=== PATIENT | male | born 1940 | race Caucasian/White ===

== ENCOUNTER 2019-03-09 13:52 | Inpatient (IN) | payer MEDICARE, OTHER ==
[~2019-03-09] VITALS: Ht 167.6 cm; Wt 64.9 kg
--- NOTE | 2019-03-09 14:05 | NUR ---
PT BIB [facility] WITH C/O CP. [facility] NOTED PT TO BE SATING 80% ON RA, PLACED ON 6L NC. PT DOES HAVE HX OF COPD, NO HOME O2 USE AT THIS TIME. 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 PT STATES PAIN 4/10, DESCRIBES IT ACHING
[2019-03-09] MEDS ORDERED: ASPIRIN 81 MG TABLET CHEW PO ONE (15:00)
--- NOTE | 2019-03-09 15:00 | NUR ---
PT RESTING ON EDWARD GEE NOTED, VSS. 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
[2019-03-09 15:18] LABS: ALANINE AMINOTRANSFERASE 115 U/L (12-78); ALBUMIN 2.9 g/dL (3.4-5.0); ANION GAP 11 mmol/L (5-15); CALCIUM 8.4 mg/dL (8.5-10.1); CHLORIDE 100 mmol/L (98-107); CREATININE 1.62 mg/dL (0.7-1.3)
[2019-03-09 15:20] LABS: MEAN CORPUSCULAR HEMOGLOBIN 32.2 pg (27.5-34.5); MEAN CORPUSCULAR VOLUME 97.5 fL (81-97); RED BLOOD COUNT 3.08 x10^6/uL (4.38-5.82); RED CELL DISTRIBUTION WIDTH 18.9 % (9.4-14.8)
[2019-03-09 15:22] LABS: ALKALINE PHOSPHATASE 85 U/L (45-117); BILIRUBIN,TOTAL 0.4 mg/dL (0.2-1.0); TOTAL PROTEIN 7.7 g/dL (6.4-8.2); TROPONIN I 0.019 ng/mL (0.000-0.045)
[2019-03-09 15:37] LABS: MEAN PLATELET VOLUME 6.9 fL (7.4-10.4); PLATELET COUNT 95 x10^3/uL (130-400)
[2019-03-09 15:38] LABS: MD YES
[2019-03-09 15:41] LABS: BAND#(MANUAL) 0.28 x10^3/uL; BANDS%(MANUAL) 14 % (0-7); LYMPH#(MANUAL) 0.54 x10^3/uL (1-3.4); LYMPHS% (MANUAL) 27 % (22-44); MONOS% (MANUAL) 5 % (2-9); SEG#(MANUAL) 1.08 x10^3/uL (1.8-6.8); SEGS% (MANUAL) 54 % (42-75)
[2019-03-09 15:42] LABS: <PLATELET ESTIMATE> DECREASED; <PLT MORPHOLOGY> NORMAL PLT MORPH; ANISOCYTOSIS 1+
--- NOTE | 2019-03-09 15:52 | NUR ---
ER PROVIDER IN TO UPDATE PT ON POC, PT VSS, NAD NOTED. PT MEDICATED PER MAR
[2019-03-09] MEDS ORDERED: SODIUM CHLORIDE 0.9% 1,000ML IVBOLUS ONE (16:00)
[2019-03-09] MEDS ORDERED: AZITHROMYCIN 500 MG in SODIUM CHLORIDE 0.9% 250 ML IVPB ONE (16:00)
[2019-03-09] MEDS ORDERED: CEFTRIAXONE PMX 1GM/50ML 50 ML IVPB ONE (16:00)
[2019-03-09] MEDS ORDERED: CEFTRIAXONE PMX 1GM/50ML 50 ML ONE (16:17)
[2019-03-09 16:43] LABS: MICROSCOPIC INDICATED
[2019-03-09] MEDS ORDERED: OMNIPAQUE 350 MG/ML, 100ML BOTTLE ONE ×2 (17:10→17:14)
--- NOTE | 2019-03-09 17:16 | NUR ---
PT TO IMAGING
[2019-03-09 17:17] LABS: CULTURE INDICATED? NO
[2019-03-09] MEDS: SODIUM CHLORIDE 0.9% 1,000 ML IV SCH (18:39)
--- NOTE | 2019-03-09 18:41 | NUR ---
PT RESTIN ON MARSHALL GEE NAD NOTED, PT TO BE ADMITTED, AWAITING FOR BED PLACEMENT. ADMITTING PROVIDER IN TO EVAL PT
[2019-03-09] MEDS ORDERED: POLYETHYLENE GLYCOL 17 GM PACKET PO PRN (19:00)
[2019-03-09] MEDS ORDERED: BISACODYL 10 MG SUPP PR PRN (19:00)
[2019-03-09] MEDS ORDERED: ACETAMINOPHEN 325 MG TABLET PO PRN (19:00)
[2019-03-09] MEDS ORDERED: ONDANSETRON ODT 4 MG PO PRN (19:00)
[2019-03-10 00:35] VITALS: BP 95/59
[2019-03-10] MEDS: SODIUM CHLORIDE 0.9% 1,000 ML IV SCH ×2 (03:51→16:32)
[2019-03-10 04:23] VITALS: BP 99/62
[2019-03-10 05:33] LABS: ALBUMIN 2.5 g/dL (3.4-5.0); ANION GAP 7 mmol/L (5-15); CALCIUM 8.6 mg/dL (8.5-10.1); CHLORIDE 107 mmol/L (98-107)
[2019-03-10 05:36] LABS: ALANINE AMINOTRANSFERASE 94 U/L (12-78); ALKALINE PHOSPHATASE 79 U/L (45-117); BILIRUBIN,TOTAL 0.5 mg/dL (0.2-1.0); CREATININE 1.14 mg/dL (0.7-1.3)
[2019-03-10 05:43] LABS: MEAN CORPUSCULAR HEMOGLOBIN 32.6 pg (27.5-34.5); MEAN CORPUSCULAR HGB CONC 33.7 g/dL (33.2-36.2); MEAN CORPUSCULAR VOLUME 96.8 fL (81-97); RED BLOOD COUNT 2.77 x10^6/uL (4.38-5.82); RED CELL DISTRIBUTION WIDTH 18.8 % (9.4-14.8)
[2019-03-10 06:44] LABS: MD YES; MEAN PLATELET VOLUME 7.1 fL (7.4-10.4); PLATELET COUNT 84 x10^3/uL (130-400)
[2019-03-10 06:57] VITALS: BP 84/54
[2019-03-10 06:57] LABS: <PLATELET ESTIMATE> DECREASED; <PLT MORPHOLOGY> NORMAL PLT MORPH; ANISOCYTOSIS 1+; BAND#(MANUAL) 0.65 x10^3/uL; BANDS%(MANUAL) 27 % (0-7); LYMPH#(MANUAL) 0.91 x10^3/uL (1-3.4); LYMPHS% (MANUAL) 38 % (22-44); METAMYELOCYTES# (MANUAL) 0.17 x10^3/uL (0-0); METAMYELOCYTES% (MANUAL) 7 % (0-1); MONOS#(MANUAL) 0.07 x10^3/uL (0.3-2.7); MONOS% (MANUAL) 3 % (2-9); SEGS% (MANUAL) 25 % (42-75)
[2019-03-10 07:47] VITALS: BP 98/62
[2019-03-10] MEDS: SENNA/DOCUSATE TABLET PO SCH (07:49)
[2019-03-10 13:33] VITALS: BP 106/63
[2019-03-10] MEDS: CEFTRIAXONE PMX 1GM/50ML 50 ML IV SCH (16:32)
[2019-03-10] MEDS: AZITHROMYCIN 500 MG in SODIUM CHLORIDE 0.9% 250 ML IV SCH (18:06)
[2019-03-10 21:00] VITALS: BP 148/76
[2019-03-11] MEDS: GUAIFENESIN/DM 200-20MG, 10ML UDC PO PRN (00:04)
[2019-03-11 01:57] VITALS: BP 131/76
[2019-03-11] MEDS: SODIUM CHLORIDE 0.9% 1,000 ML IV SCH (04:03)
[2019-03-11] MEDS ORDERED: ALBUTEROL/IPRATROPIUM 2.5MG/0.5MG, 3 ML ONE (04:22)
[2019-03-11] MEDS ORDERED: ALBUTEROL/IPRATROPIUM 2.5MG/0.5MG, 3 ML NPPB PRN (04:30)
[2019-03-11] MEDS: HEPARIN 5,000 UNITS/ML, 1ML SQ SCH ×3 (04:32→20:13)
[2019-03-11 07:10] VITALS: BP 143/79
[2019-03-11] MEDS: ALBUTEROL/IPRATROPIUM 2.5MG/0.5MG, 3 ML NPPB SCH ×4 (07:35→20:00)
[2019-03-11] MEDS ORDERED: FUROSEMIDE 40 MG/4 ML IV ONE (08:00)
[2019-03-11] MEDS ORDERED: FUROSEMIDE 40 MG/4 ML ONE (08:02)
[2019-03-11] MEDS: SENNA/DOCUSATE TABLET PO SCH (08:05)
[2019-03-11 09:50] LABS: MEAN CORPUSCULAR HEMOGLOBIN 32.7 pg (27.5-34.5); MEAN CORPUSCULAR HGB CONC 33.5 g/dL (33.2-36.2); MEAN CORPUSCULAR VOLUME 97.9 fL (81-97); RED BLOOD COUNT 2.77 x10^6/uL (4.38-5.82); RED CELL DISTRIBUTION WIDTH 19.1 % (9.4-14.8)
[2019-03-11 10:00] LABS: ALBUMIN 2.6 g/dL (3.4-5.0); ANION GAP 7 mmol/L (5-15); CALCIUM 8.1 mg/dL (8.5-10.1); CHLORIDE 108 mmol/L (98-107)
[2019-03-11 10:08] LABS: BASOPHILS # (AUTO) 0.02 x10^3/uL (0-0.1); BASOPHILS % (AUTO) 0 % (0-1); EOSINOPHILS # (AUTO) 0.01 x10^3/uL (0-0.4); EOSINOPHILS % (AUTO) 0 % (1-7); LYMPHOCYTES # (AUTO) 0.51 x10^3/uL (1-3.4); LYMPHOCYTES % (AUTO) 13 % (22-44); MD SCAN; MEAN PLATELET VOLUME 7.1 fL (7.4-10.4); MONOCYTES # (AUTO) 0.19 x10^3/uL (0.2-0.8); MONOCYTES % (AUTO) 5 % (2-9); NEUTROPHILS # (AUTO) 3.26 x10^3/uL (1.8-6.8); NEUTROPHILS % (AUTO) 82 % (42-75); PLATELET COUNT 95 x10^3/uL (130-400)
[2019-03-11 10:09] LABS: % IRON SATURATION 18 % (20-55); ALANINE AMINOTRANSFERASE 68 U/L (12-78); ALKALINE PHOSPHATASE 96 U/L (45-117); BILIRUBIN,TOTAL 0.4 mg/dL (0.2-1.0); CREATININE 1.04 mg/dL (0.7-1.3); IRON LEVEL 33 mcg/dL (65-175); PREALBUMIN 9.9 mg/dL (20.0-40.0); TOTAL IRON BINDING CAPACITY 188 mcg/dL (250-450); TOTAL PROTEIN 7.5 g/dL (6.4-8.2)
[2019-03-11 15:24] VITALS: BP 112/69
[2019-03-11] MEDS: CEFTRIAXONE PMX 1GM/50ML 50 ML IV SCH (15:27)
[2019-03-11] MEDS: AZITHROMYCIN 500 MG in SODIUM CHLORIDE 0.9% 250 ML IV SCH (16:39)
[2019-03-11 16:45] VITALS: BP 118/66
[2019-03-11] MEDS: DILTIAZEM 125 MG in SODIUM CHLORIDE 0.9% 100 ML IV SCH (18:12)
[2019-03-11 18:16] VITALS: BP 127/73
[2019-03-11 20:41] VITALS: BP 114/68
[2019-03-12] VITALS (8 sets, daily range): BP systolic 112–184; BP diastolic 63–88
[2019-03-12] MEDS: DILTIAZEM 125 MG in SODIUM CHLORIDE 0.9% 100 ML IV SCH (05:03)
[2019-03-12] MEDS: HEPARIN 5,000 UNITS/ML, 1ML SQ SCH ×3 (05:03→21:20)
[2019-03-12 05:45] LABS: BASOPHILS % (AUTO) 0 % (0-1); EOSINOPHILS # (AUTO) 0.01 x10^3/uL (0-0.4); EOSINOPHILS % (AUTO) 0 % (1-7); LYMPHOCYTES # (AUTO) 0.98 x10^3/uL (1-3.4); LYMPHOCYTES % (AUTO) 21 % (22-44); MD NO; MEAN CORPUSCULAR HEMOGLOBIN 32.4 pg (27.5-34.5); MEAN CORPUSCULAR HGB CONC 33.2 g/dL (33.2-36.2); MEAN CORPUSCULAR VOLUME 97.5 fL (81-97); MEAN PLATELET VOLUME 7.1 fL (7.4-10.4); MONOCYTES # (AUTO) 0.45 x10^3/uL (0.2-0.8); MONOCYTES % (AUTO) 10 % (2-9); NEUTROPHILS # (AUTO) 3.21 x10^3/uL (1.8-6.8); NEUTROPHILS % (AUTO) 69 % (42-75); PLATELET COUNT 106 x10^3/uL (130-400); RED BLOOD COUNT 2.58 x10^6/uL (4.38-5.82); RED CELL DISTRIBUTION WIDTH 19.8 % (9.4-14.8)
[2019-03-12 06:01] LABS: CHLORIDE 105 mmol/L (98-107)
[2019-03-12 06:08] LABS: ALANINE AMINOTRANSFERASE 68 U/L (12-78); ALBUMIN 2.3 g/dL (3.4-5.0); ALKALINE PHOSPHATASE 110 U/L (45-117); ANION GAP 7 mmol/L (5-15); BILIRUBIN,TOTAL 0.5 mg/dL (0.2-1.0); CALCIUM 8.4 mg/dL (8.5-10.1); CREATININE 0.85 mg/dL (0.7-1.3)
[2019-03-12] MEDS: ALBUTEROL/IPRATROPIUM 2.5MG/0.5MG, 3 ML NPPB SCH (07:00)
[2019-03-12] MEDS ORDERED: POTASSIUM CHLORIDE 20 MEQ TAB.ER.PRT PO ONE ×2 (08:00→11:30)
[2019-03-12] MEDS: METOPROLOL TARTRATE 25 MG TABLET PO SCH ×3 (08:52→23:48)
[2019-03-12] MEDS: SENNA/DOCUSATE TABLET PO SCH (08:55)
[2019-03-12] MEDS: GUAIFENESIN/DM 200-20MG, 10ML UDC PO PRN (10:11)
[2019-03-12] MEDS: BENZONATATE 100 MG CAPSULE PO SCH ×3 (10:12→21:20)
[2019-03-12] MEDS ORDERED: FUROSEMIDE 40 MG/4 ML IV ONE (11:30)
[2019-03-12] MEDS: CEFTRIAXONE PMX 1GM/50ML 50 ML IV SCH (15:46)
[2019-03-12] MEDS: AZITHROMYCIN 500 MG in SODIUM CHLORIDE 0.9% 250 ML IV SCH (17:13)
[2019-03-12] MEDS ORDERED: VANCOMYCIN PER PHARMACY MC PRN (17:30)
[2019-03-12] MEDS ORDERED: VANCOMYCIN 1,500 MG in SODIUM CHLORIDE 0.9% 250 ML IV ONE (18:00)
[2019-03-12] MEDS: PIPERACILLIN/TAZO/PMX 3.375GM 50 ML IV SCH ×2 (18:10→23:48)
[2019-03-12 18:47] LABS: RAPID INFLUENZA A Negative (Negative); RAPID INFLUENZA B Negative (Negative)
[2019-03-12] MEDS ORDERED: OMNIPAQUE 350 MG/ML, 100ML BOTTLE ONE (19:44)
[2019-03-13 03:55] VITALS: BP 128/78
[2019-03-13] MEDS: HEPARIN 5,000 UNITS/ML, 1ML SQ SCH ×3 (05:22→21:47)
[2019-03-13] MEDS: PIPERACILLIN/TAZO/PMX 3.375GM 50 ML IV SCH ×3 (05:22→16:39)
[2019-03-13 05:33] LABS: BASOPHILS # (AUTO) 0.02 x10^3/uL (0-0.1); BASOPHILS % (AUTO) 1 % (0-1); EOSINOPHILS # (AUTO) 0.06 x10^3/uL (0-0.4); EOSINOPHILS % (AUTO) 2 % (1-7); LYMPHOCYTES # (AUTO) 1.21 x10^3/uL (1-3.4); LYMPHOCYTES % (AUTO) 35 % (22-44); MD NO; MEAN CORPUSCULAR HEMOGLOBIN 32.3 pg (27.5-34.5); MEAN CORPUSCULAR HGB CONC 33.1 g/dL (33.2-36.2); MEAN CORPUSCULAR VOLUME 97.6 fL (81-97); MEAN PLATELET VOLUME 7.2 fL (7.4-10.4); MONOCYTES % (AUTO) 14 % (2-9); NEUTROPHILS # (AUTO) 1.69 x10^3/uL (1.8-6.8); NEUTROPHILS % (AUTO) 49 % (42-75); PLATELET COUNT 104 x10^3/uL (130-400); RED BLOOD COUNT 2.63 x10^6/uL (4.38-5.82); RED CELL DISTRIBUTION WIDTH 19.4 % (9.4-14.8)
[2019-03-13 07:38] VITALS: BP 122/77
[2019-03-13] MEDS: GUAIFENESIN/DM 200-20MG, 10ML UDC PO PRN ×2 (08:57→16:39)
[2019-03-13] MEDS: METOPROLOL TARTRATE 25 MG TABLET PO SCH ×2 (08:58→16:39)
[2019-03-13] MEDS: SENNA/DOCUSATE TABLET PO SCH (08:58)
[2019-03-13] MEDS: BENZONATATE 100 MG CAPSULE PO SCH ×3 (08:58→21:47)
[2019-03-13 13:19] VITALS: BP 114/73
[2019-03-13] MEDS ORDERED: PHARMACOKINETIC MONITORING MC PRN (16:30)
[2019-03-13 18:21] VITALS: BP 122/72
[2019-03-13 19:07] LABS: TROPONIN I 0.019 ng/mL (0.000-0.045)
[2019-03-13] MEDS: VANCOMYCIN 1,400 MG in SODIUM CHLORIDE 0.9% 250 ML IV SCH (19:46)
[2019-03-13 19:48] VITALS: BP 107/64
[2019-03-14] MEDS: PIPERACILLIN/TAZO/PMX 3.375GM 50 ML IV SCH ×4 (00:13→17:05)
[2019-03-14 00:14] VITALS: BP 124/75
[2019-03-14] MEDS: METOPROLOL TARTRATE 25 MG TABLET PO SCH ×3 (00:14→17:05)
[2019-03-14 00:52] LABS: TROPONIN I 0.019 ng/mL (0.000-0.045)
[2019-03-14] MEDS: HEPARIN 5,000 UNITS/ML, 1ML SQ SCH ×3 (05:00→21:40)
[2019-03-14 05:08] LABS: BASOPHILS # (AUTO) 0.02 x10^3/uL (0-0.1); BASOPHILS % (AUTO) 1 % (0-1); EOSINOPHILS # (AUTO) 0.21 x10^3/uL (0-0.4); EOSINOPHILS % (AUTO) 7 % (1-7); LYMPHOCYTES # (AUTO) 1.08 x10^3/uL (1-3.4); LYMPHOCYTES % (AUTO) 35 % (22-44); MD NO; MEAN CORPUSCULAR HEMOGLOBIN 32.7 pg (27.5-34.5); MEAN CORPUSCULAR HGB CONC 33.6 g/dL (33.2-36.2); MEAN CORPUSCULAR VOLUME 97.2 fL (81-97); MEAN PLATELET VOLUME 7.2 fL (7.4-10.4); MONOCYTES # (AUTO) 0.45 x10^3/uL (0.2-0.8); MONOCYTES % (AUTO) 15 % (2-9); NEUTROPHILS # (AUTO) 1.34 x10^3/uL (1.8-6.8); NEUTROPHILS % (AUTO) 43 % (42-75); PLATELET COUNT 106 x10^3/uL (130-400); RED BLOOD COUNT 2.71 x10^6/uL (4.38-5.82); RED CELL DISTRIBUTION WIDTH 18.6 % (9.4-14.8)
[2019-03-14 05:18] LABS: ALBUMIN 2.2 g/dL (3.4-5.0); ANION GAP 5 mmol/L (5-15); CALCIUM 8.2 mg/dL (8.5-10.1); CHLORIDE 107 mmol/L (98-107)
[2019-03-14 05:23] LABS: ALANINE AMINOTRANSFERASE 58 U/L (12-78); ALKALINE PHOSPHATASE 140 U/L (45-117); BILIRUBIN,TOTAL 0.4 mg/dL (0.2-1.0); CREATININE 0.92 mg/dL (0.7-1.3); TOTAL PROTEIN 6.8 g/dL (6.4-8.2)
[2019-03-14 07:47] VITALS: BP 128/76
[2019-03-14] MEDS: SENNA/DOCUSATE TABLET PO SCH (09:00)
[2019-03-14] MEDS: BENZONATATE 100 MG CAPSULE PO SCH ×3 (09:29→21:40)
[2019-03-14 12:57] VITALS: BP 119/68
[2019-03-14] MEDS ORDERED: GUAIFENESIN/COD200MG-20MG/10ML LIQUID PO PRN (13:00)
[2019-03-14] MEDS: VANCOMYCIN 1,400 MG in SODIUM CHLORIDE 0.9% 250 ML IV SCH (20:15)
[2019-03-14 20:52] VITALS: BP 119/72
[2019-03-15] MEDS: PIPERACILLIN/TAZO/PMX 3.375GM 50 ML IV SCH ×4 (00:05→18:28)
[2019-03-15] MEDS: METOPROLOL TARTRATE 25 MG TABLET PO SCH ×3 (00:05→17:15)
[2019-03-15 02:31] VITALS: BP 120/74
[2019-03-15] MEDS: ASPIRIN 81 MG TABLET EC PO SCH (05:38)
[2019-03-15] MEDS: HEPARIN 5,000 UNITS/ML, 1ML SQ SCH ×3 (05:38→21:04)
[2019-03-15 06:44] VITALS: BP 129/74
[2019-03-15] MEDS: SENNA/DOCUSATE TABLET PO SCH (08:34)
[2019-03-15] MEDS: BENZONATATE 100 MG CAPSULE PO SCH ×3 (08:39→21:04)
[2019-03-15] MEDS ORDERED: METO25TA91 PO (09:56)
[2019-03-15] MEDS ORDERED: BENZ-17 PO (09:56)
[2019-03-15] MEDS ORDERED: LEVO750T6 PO (09:56)
[2019-03-15] MEDS ORDERED: PRED20TA PO (09:56)
[2019-03-15] MEDS ORDERED: APIX5TAB PO (09:56)
[2019-03-15 12:52] VITALS: BP 135/76
[2019-03-15 20:17] VITALS: BP 125/73
[2019-03-15] MEDS: VANCOMYCIN 1,400 MG in SODIUM CHLORIDE 0.9% 250 ML IV SCH (20:35)
[2019-03-16] MEDS: PIPERACILLIN/TAZO/PMX 3.375GM 50 ML IV SCH ×3 (00:17→11:42)
[2019-03-16 00:18] VITALS: BP 133/74
[2019-03-16] MEDS: METOPROLOL TARTRATE 25 MG TABLET PO SCH ×2 (00:38→08:15)
[2019-03-16 05:41] VITALS: BP 138/77
[2019-03-16] MEDS: ASPIRIN 81 MG TABLET EC PO SCH (05:47)
[2019-03-16] MEDS: HEPARIN 5,000 UNITS/ML, 1ML SQ SCH (05:47)
[2019-03-16 07:00] VITALS: BP 146/85
[2019-03-16] MEDS: SENNA/DOCUSATE TABLET PO SCH (08:15)
[2019-03-16] MEDS: BENZONATATE 100 MG CAPSULE PO SCH (08:15)
[2019-03-16] MEDS ORDERED: VANCOMYCIN 1,200 MG in SODIUM CHLORIDE 0.9% 250 ML IV SCH (13:00)
== END 2019-03-16 13:59 | disposition home or self-care (01) | DRG 871 ==
LOC: ED 18:12 → EDIP 18:39 → 3N 21:22 → 5SO 03-11 17:31 → 4EST 03-15 22:36 → DCLOUNGE 03-16 13:29
PROVIDERS: ADMIT Hospitalist; ATTEND Internal Medicine
DX: A41.9 Sepsis, unspecified organism (principal); J15.9 Unspecified bacterial pneumonia; J96.91 Respiratory failure, unspecified with hypoxia; D61.818 Other pancytopenia; E87.2 Acidosis; J44.0 Chronic obstructive pulmonary disease with (acute) lower respiratory infection; N17.9 Acute kidney failure, unspecified; Z60.2 Problems related to living alone; R65.20 Severe sepsis without septic shock; Z96.642 Presence of left artificial hip joint; D53.9 Nutritional anemia, unspecified; I07.1 Rheumatic tricuspid insufficiency; I48.91 Unspecified atrial fibrillation; Z85.820 Personal history of malignant melanoma of skin; Z98.1 Arthrodesis status
CPT/HCPCS: 36415; 71045; 71046; 71260; 71275; 74177; 80053; 80074; 80202; 81001; 82607; 82728; 83540; 83550; 83605; 83735; 84100; 84134; 84145; 84484; 85025; 85379; 86140; 87040; 87070; 87205; 87400; 87806; 93005; 93306; 94640; 99291; G0378; J0456; J0696; J1644; J1940; J2543; J3370; J7620; Q9967; G0475; J7030; J7050; J7512